=== PATIENT | male | born 1950 | race Two or more races ===

== ENCOUNTER 2016-10-24 16:10 | Inpatient (IN) | payer OTHER, MEDICARE ==
[~2016-10-24] VITALS: Ht 170.2 cm; Wt 82.1 kg
[2016-10-24] MEDS ORDERED: LORA1TAB PO (16:30)
[2016-10-24] MEDS ORDERED: VENL37.515 PO (16:30)
--- NOTE | 2016-10-24 16:51 | NUR ---
NOA MUJICA AT BEDSIDE FOR PSYCH EVAL
[2016-10-24] MEDS ORDERED: AMIT25TA24 PO (18:00)
[2016-10-24] MEDS ORDERED: ASPI81TA31 PO (18:00)
[2016-10-24] MEDS ORDERED: CARV25TA PO (18:00)
[2016-10-24] MEDS ORDERED: OLME40TA12 PO (18:00)
[2016-10-24] MEDS ORDERED: APIDRA (18:00)
[2016-10-24] MEDS ORDERED: LANTUS SQ (18:00)
[2016-10-24 18:07] LABS: CARBON DIOXIDE 33 mmol/L (21-32); CHLORIDE 98 mmol/L (98-107); POTASSIUM 4.1 mmol/L (3.5-5.1)
[2016-10-24 18:08] LABS: BASOPHILS # (AUTO) 0.1 K/uL (0.0-8.0); BASOPHILS % (AUTO) 0.7 % (0.0-2.0); CREATININE 1.1 mg/dL (0.6-1.3); EOSINOPHILS # (AUTO) 0.1 K/uL (0.0-0.7); EOSINOPHILS % (AUTO) 1.5 % (0.0-7.0); GLUCOSE 213 mg/dL (74-106); HEMATOCRIT 49.6 % (40-50); HEMOGLOBIN 16.8 G/DL (14.0-18.0); LYMPHOCYTES # (AUTO) 1.7 K/UL (0.8-4.8); LYMPHOCYTES % (AUTO) 20.8 % (20.5-51.5); MEAN CORPUSCULAR HEMOGLOBIN 29.7 UUG (27.0-31.0); MEAN CORPUSCULAR HGB CONC 34 g/dL (32.0-37.0); MEAN CORPUSCULAR VOLUME 87.9 FL (82.0-92.0); MONOCYTES # (AUTO) 0.5 K/UL (0.1-1.30); MONOCYTES % (AUTO) 6.5 % (0.0-11.0); NEUTROPHILS # (AUTO) 5.7 K/UL (1.8-8.9); NEUTROPHILS % (AUTO) 70.5 % (38.5-71.5); PLATELET COUNT (AUTO) 166 K/UL (150-450); RED BLOOD CELL COUNT(AUTO) 5.65 MIL/UL (4.7-6.1); UREA NITROGEN, BLOOD 35 mg/dL (7-18); WHITE BLOOD COUNT (AUTO) 8.1 K/UL (4.0-11.2)
[2016-10-24 18:12] LABS: *BILIRUBIN,URIN NEGATIVE (NEGATIVE); *BLOOD, URINE NEGATIVE (NEGATIVE); *COLOR,URINE DARK YELLOW (YELLOW); *KETONES,URINE TRACE (NEGATIVE); *PROTEIN,URINE 2+ (NEGATIVE); *UROBILINOGEN,URINE 0.2 E.U./dl (NORMAL); LEUKOCYTE ESTERASE ,URINE NEGATIVE (NEGATIVE); NITRITE, URINE NEGATIVE (NEGATIVE); PH,URINE 5.5 (5.0-8.0); UGLUCOSE TRACE (NEGATIVE)
[2016-10-24 18:13] LABS: ALANINE AMINOTRANSFERASE 67 U/L (16-63); ALKALINE PHOSPHATASE 80 U/L (50-136); ASPARTATE AMINOTRANSFERASE 23 U/L (15-37); BILIRUBIN,DIRECT 0.2 mg/dL (0.0-0.2); BILIRUBIN,TOTAL 0.7 mg/dL (0.2-1.0)
--- NOTE | 2016-10-24 18:14 | NUR ---
HOSPITAL SANDWICH PROVIDED PER PT REQUEST
[2016-10-24 18:17] LABS: ETHANOL < 3 MG/DL (0-0)
[2016-10-24 18:18] LABS: *CLARITY,URINE SLIGHTLY HAZY (CLEAR)
[2016-10-24 18:19] LABS: MUCUS,URINE MANY /LPF (0-FEW); URINE AMORPHOUS URATE FEW /HPF; WBC,URINE 0-3 /HPF (0-3)
[2016-10-24 18:21] LABS: *AMPHETAMINE, URINE NEGATIVE (NEGATIVE); *BARBITURATE, URINE NEGATIVE (NEGATIVE); *CANNABINOID, URINE NEGATIVE (NEGATIVE); *COCCAINE, URINE NEGATIVE (NEGATIVE); *OPIATE, URINE NEGATIVE (NEGATIVE); *PHENCYCLIDINE SCREEN,URINE NEGATIVE (NEGATIVE)
[2016-10-24 18:44] LABS: ACETAMINOPHEN < 2.0 ug/mL (10-30)
--- NOTE | 2016-10-24 19:59 | NUR ---
Pt. admitted to [facility], under care of Dr. Ulrich Belongs List completed
[2016-10-24 20:30] VITALS: BP 157/75
[2016-10-24] MEDS ORDERED: MAGNESIUM HYDROXIDE 30 ML LIQUID UDC PO PRN (20:30)
[2016-10-24] MEDS ORDERED: MAG HYDROX/AL HYDROX/SIMETH 30 ML LIQUID UDC PO PRN (20:30)
[2016-10-24] MEDS: LORAZEPAM 0.5 MG TABLET PO PRN (21:50)
[2016-10-24] MEDS ORDERED: INSULIN REGULAR, HUMAN 300 UNITS/3 ML VIAL SQ PRN (22:15)
[2016-10-24] MEDS ORDERED: DEXTROSE 50% 50 ML DISP.SYRIN IV PRN (22:15)
[2016-10-25] MEDS: TEMAZEPAM 7.5 MG CAPSULE PO PRN (00:18)
--- NOTE | 2016-10-25 00:25 | NUR ---
At approx 1999 admitted 66 years old male to [facility] mental health unit. Patient was BIB to [facility] ER due to patient's intense anxiety and depression, inability to work for one week. Inability to eat and sleep. Patient was placed on 72hrs hold starting on 10/24/16 at 1730 and will end on 10/27/16 at 1730, due to GD. Patient can't sleep, can't concentrate, can't work for last week, lack of energy, severe depression and anxiety and weight loss. Patient was calm and cooperative at time of admission. He was accompanied by his . He is patient of Dr. Osuna and Dr. Ulrich. All medication were reconcile with both doctors. patient was advised of unit rules, staff, unit, room and roommate. we will continue to monitor.
[2016-10-25] MEDS: BLOOD SUGAR DIAGNOSTIC 1 EACH STRIP VI SCH ×4 (07:01→20:23)
--- NOTE | 2016-10-25 07:12 | NUR ---
PATIENT SLEPT 5 HRS THROUGH THE NIGHT. HE HAD A SHOWER THIS MORNING. HE IS A/O X 4 WITH NO CHANGES IN LOC.
[2016-10-25 07:30] VITALS: BP 144/76
[2016-10-25] MEDS: CARVEDILOL 25 MG TABLET PO SCH ×2 (08:39→17:47)
[2016-10-25] MEDS: ASPIRIN 81 MG TAB.CHEW PO SCH (08:40)
[2016-10-25] MEDS: INSULIN REGULAR, HUMAN 300 UNIT/3 ML VIAL SQ PRN ×3 (08:44→17:45)
[2016-10-25] MEDS: VENLAFAXINE XR 75 MG CAP.SR.24H PO SCH (14:28)
[2016-10-25] MEDS: VALSARTAN 160 MG TABLET PO SCH (14:37)
--- NOTE | 2016-10-25 14:43 | NUR ---
Initial discharge instructions: Pt resides at home with his [[id number] [facility],[place],[address];[phone]].Per pt,he would like to return home upon discharge.Per ,she would like the pt to return home as well.SW will speak with pt,,and MD regarding appropriate discharge plans.SW will form a safe and proper discharge.
[2016-10-25] MEDS: LORAZEPAM 0.5 MG TABLET PO PRN (15:05)
[2016-10-25 16:00] VITALS: BP 123/68
[2016-10-25 19:57] VITALS: BP 113/56
[2016-10-25] MEDS ORDERED: MIRTAZAPINE 15 MG TABLET PO SCH (21:00)
[2016-10-25] MEDS ORDERED: INSULIN DETEMIR 300 UNIT/3 ML CARTRIDGE SQ SCH (21:00)
--- NOTE | 2016-10-25 21:14 | NUR ---
PATIENT RECEIVED IN ACTIVITIES ROOM WATCHING T.V. PATIENT APPEARS WITH FLAT AFFECT, EASILY AGITATED "I WAS REALLY ANXIOUS THIS AFTERNOON." IS REDIRECTABLE. PATIENT DENIES SI, PATIENT ENCOURAGED TO EXPRESS FEELINGS AND CONCERNS. PATIENT COMPLAINT WITH MEDICATION. ACCUCHECK THIS EVENING 248 MG/DL WITH HS COVERAGE AND LEVEMIR ORDERED, GIVEN DIRECTED. PATIENT DENIES PAIN AT THIS TIME, WILL CONTINUE TO MONITOR. NO AGGRESSIVE OR COMBATIVE BEHAVIOR NOTED, WILL CONTINUE TO MONITOR AND REDIRECT.
[2016-10-25] MEDS ORDERED: DEXTROSE 50% 50 ML DISP.SYRIN IV PRN (21:45)
[2016-10-25] MEDS ORDERED: ENOXAPARIN SODIUM 40 MG/0.4 ML DISP.SYRIN SQ SCH (21:45)
[2016-10-26] MEDS: PANTOPRAZOLE SODIUM 40 MG TABLET.DR PO SCH (06:31)
[2016-10-26] MEDS: BLOOD SUGAR DIAGNOSTIC 1 EACH STRIP VI SCH ×4 (06:31→20:21)
[2016-10-26] MEDS: LORAZEPAM 0.5 MG TABLET PO PRN (06:45)
[2016-10-26 07:30] VITALS: BP 112/78
[2016-10-26] MEDS ORDERED: ENOXAPARIN SODIUM 40 MG/0.4 ML DISP.SYRIN SQ SCH (07:30)
[2016-10-26 07:58] LABS: BASOPHILS % (AUTO) 0.2 % (0.0-2.0); EOSINOPHILS # (AUTO) 0.2 K/uL (0.0-0.7); EOSINOPHILS % (AUTO) 1.8 % (0.0-7.0); HEMATOCRIT 47.5 % (40-50); HEMOGLOBIN 16.1 G/DL (14.0-18.0); LYMPHOCYTES # (AUTO) 1.6 K/UL (0.8-4.8); LYMPHOCYTES % (AUTO) 18.4 % (20.5-51.5); MEAN CORPUSCULAR HEMOGLOBIN 29.8 UUG (27.0-31.0); MEAN CORPUSCULAR HGB CONC 34 g/dL (32.0-37.0); MEAN CORPUSCULAR VOLUME 87.9 FL (82.0-92.0); MONOCYTES # (AUTO) 0.5 K/UL (0.1-1.30); MONOCYTES % (AUTO) 5.8 % (0.0-11.0); NEUTROPHILS # (AUTO) 6.2 K/UL (1.8-8.9); NEUTROPHILS % (AUTO) 73.8 % (38.5-71.5); PLATELET COUNT (AUTO) 157 K/UL (150-450); WHITE BLOOD COUNT (AUTO) 8.6 K/UL (4.0-11.2)
[2016-10-26 08:50] LABS: CREATININE 0.9 mg/dL (0.6-1.3); MAGNESIUM 1.9 mg/dL (1.8-2.4); PHOSPHOROUS 3.5 mg/dL (2.5-4.9); POTASSIUM 3.7 mmol/L (3.5-5.1)
[2016-10-26] MEDS: VALSARTAN 160 MG TABLET PO SCH (08:53)
[2016-10-26] MEDS: ASPIRIN 81 MG TAB.CHEW PO SCH (08:53)
[2016-10-26] MEDS: VENLAFAXINE XR 75 MG CAP.SR.24H PO SCH (08:53)
[2016-10-26] MEDS: CARVEDILOL 25 MG TABLET PO SCH ×2 (08:54→18:00)
[2016-10-26] MEDS: INSULIN REGULAR, HUMAN 300 UNIT/3 ML VIAL SQ PRN ×4 (10:34→18:36)
[2016-10-26 16:00] VITALS: BP 151/69
--- NOTE | 2016-10-26 17:12 | NUR ---
GPS/RN- patient advised of 14Day hold
--- NOTE | 2016-10-26 18:38 | NUR ---
GPS/RN- PATIENT REFUSED COREG, UNABLE TO ADMINISTER INSULIN, REFUSED DINNER. PATIENT PARANOID, SUSPICIOUS, VERBALIZING TO STAFF "I DON'T TRUST YOU".
[2016-10-26] MEDS: MIRTAZAPINE 15 MG TABLET PO SCH (20:09)
[2016-10-26] MEDS: ENOXAPARIN SODIUM 40 MG/0.4 ML DISP.SYRIN SQ SCH (20:11)
[2016-10-26] MEDS: INSULIN REGULAR, HUMAN 300 UNITS/3 ML VIAL SQ PRN (20:41)
[2016-10-26] MEDS: INSULIN DETEMIR 300 UNIT/3 ML CARTRIDGE SQ SCH (20:44)
[2016-10-26] MEDS ORDERED: INSULIN GLARGINE,HUM 300 UNITS/3 ML CARTRIDGE SQ SCH (21:00)
[2016-10-26] MEDS ORDERED: QUETIAPINE FUMARATE 25 MG TABLET PO SCH (21:00)
--- NOTE | 2016-10-26 21:31 | NUR ---
PATIENT RECEIVED IN ACTIVITIES ROOM WATCHING T.V. PATIENT APPEARS WITH FLAT AFFECT, EASILY AGITATED. PATIENT ISOLATIVE IN ROOM WITH NO COMMUNICATION WITH PEERS OR STAFF. PATIENT PARANOID/SUSPICIOUS, IS PREOCCUPIED WITH OWN THOUGHTS. PATIENT DENIES SI, PATIENT ENCOURAGED TO EXPRESS FEELINGS AND CONCERNS. PATIENT COMPLAINT WITH MEDICATION. ACCUCHECK THIS EVENING 194 MG/DL WITH SLIDING SCALE HS COVERAGE AND LEVEMIR HS ORDERED, GIVEN DIRECTED. PATIENT DENIES PAIN AT THIS TIME, WILL CONTINUE TO MONITOR. NO AGGRESSIVE OR COMBATIVE BEHAVIOR NOTED, WILL CONTINUE TO MONITOR AND REDIRECT. Addendum: 10/26/16 at 2132 by GONZALEZ DAVIDSON RN PATIENT HAD SNACK THIS EVENING.
[2016-10-26 21:38] VITALS: BP 161/80
[2016-10-26] MEDS: TEMAZEPAM 7.5 MG CAPSULE PO PRN (22:09)
[2016-10-27] MEDS: PANTOPRAZOLE SODIUM 40 MG TABLET.DR PO SCH (06:22)
[2016-10-27] MEDS: BLOOD SUGAR DIAGNOSTIC 1 EACH STRIP VI SCH ×4 (06:31→20:08)
[2016-10-27 07:30] VITALS: BP_SYST 137; BP_SYST 154; BP_DIAS 74; BP_DIAS 82
[2016-10-27] MEDS: VENLAFAXINE XR 150 MG CAP.SR.24H PO SCH (08:43)
[2016-10-27] MEDS: CARVEDILOL 25 MG TABLET PO SCH ×2 (08:44→16:55)
[2016-10-27] MEDS: ASPIRIN 81 MG TAB.CHEW PO SCH (08:44)
[2016-10-27] MEDS: VALSARTAN 160 MG TABLET PO SCH (08:44)
[2016-10-27] MEDS ORDERED: VENLAFAXINE XR 75 MG CAP.SR.24H PO SCH (09:00)
[2016-10-27] MEDS: INSULIN REGULAR, HUMAN 300 UNIT/3 ML VIAL SQ PRN ×3 (12:18→20:29)
--- NOTE | 2016-10-27 12:35 | NUR ---
UR Note: Patient was authorized 6 days, with review due on 10/30/2016. CM assigned is Maria Isabel Price [ ext [phone]] with [facility] Tracking # [id number]
[2016-10-27] MEDS: QUETIAPINE FUMARATE 25 MG TABLET PO SCH ×2 (12:47→20:19)
[2016-10-27 17:00] VITALS: BP 152/84
[2016-10-27 20:13] VITALS: BP 132/70
[2016-10-27] MEDS: MIRTAZAPINE 15 MG TABLET PO SCH (20:18)
[2016-10-27] MEDS: ENOXAPARIN SODIUM 40 MG/0.4 ML DISP.SYRIN SQ SCH (20:26)
[2016-10-27] MEDS: INSULIN DETEMIR 300 UNIT/3 ML CARTRIDGE SQ SCH (20:27)
[2016-10-28] MEDS: PANTOPRAZOLE SODIUM 40 MG TABLET.DR PO SCH (07:00)
--- NOTE | 2016-10-28 07:00 | NUR ---
RECEIVED REPORT FROM ANIMAL REHABILITATOR NURSE, PT ASLEEP, RESP EVEN/UNLABORED, NO DISTRESS NOTED.
[2016-10-28] MEDS: BLOOD SUGAR DIAGNOSTIC 1 EACH STRIP VI SCH ×4 (07:01→21:04)
[2016-10-28 07:30] VITALS: BP 136/73
[2016-10-28] MEDS: CARVEDILOL 25 MG TABLET PO SCH ×2 (08:00→16:54)
[2016-10-28] MEDS: QUETIAPINE FUMARATE 25 MG TABLET PO SCH ×3 (09:00→21:00)
[2016-10-28] MEDS: VALSARTAN 160 MG TABLET PO SCH (09:00)
[2016-10-28] MEDS: VENLAFAXINE XR 150 MG CAP.SR.24H PO SCH (09:00)
[2016-10-28] MEDS: ASPIRIN 81 MG TAB.CHEW PO SCH (09:00)
--- NOTE | 2016-10-28 09:43 | NUR ---
PT REFUSED ALL AM MEDS 2 TIMES, SAYS IT DOESN'T DO ANY GOOD ANY GOOD, ENC PT THAT HE NEEDED IT BUT REFUSED STILL.
--- NOTE | 2016-10-28 11:39 | NUR ---
BS 163, PT REFUSED INSULIN, INFORMED PT HE NEEDED INSULIN AND IT IS A DOCTORS ORDER, BUT PT REFUSED
--- NOTE | 2016-10-28 13:14 | NUR ---
PT REFUSED SEROQUEL MED, INFORMED HIM HE NEEDED THIS MED BUT PT STILL REFUSED.
--- NOTE | 2016-10-28 14:06 | NUR ---
PT SITTING UP IN BED HOLDING HIS HEAD GRIMACING, OFFERED SEROQUEL AND TYLENOL BUT PT STILL REFUSED.
[2016-10-28 15:04] VITALS: BP 139/83
[2016-10-28] MEDS: LORAZEPAM 0.5 MG TABLET PO PRN (16:47)
[2016-10-28] MEDS: ACETAMINOPHEN 325 MG TABLET PO PRN ×2 (16:48→17:13)
--- NOTE | 2016-10-28 16:56 | NUR ---
GAVE PT 0.5MG OF ATIVAN AND 650MG OF TYLENOL FOR PAIN AND ANXIOUSNESS, PT ALSO TOOKCOREG 5MG, WILL CONT TO MONITOR.
[2016-10-28] MEDS: INSULIN REGULAR, HUMAN 300 UNIT/3 ML VIAL SQ PRN (17:09)
--- NOTE | 2016-10-28 17:54 | NUR ---
PT IS DOING MUCH BETTER, NO C/O PAIN, PT EATING DINNER, WILL GIVE REPORT TO HEAVY EQUIPMENT DIESEL MECHANIC NURSE.
[2016-10-28 20:02] VITALS: BP 116/72
[2016-10-28] MEDS: MIRTAZAPINE 15 MG TABLET PO SCH (21:00)
[2016-10-28] MEDS: INSULIN DETEMIR 300 UNIT/3 ML CARTRIDGE SQ SCH (21:01)
[2016-10-28] MEDS: INSULIN REGULAR, HUMAN 300 UNITS/3 ML VIAL SQ PRN (21:03)
[2016-10-28] MEDS: ENOXAPARIN SODIUM 40 MG/0.4 ML DISP.SYRIN SQ SCH (21:04)
[2016-10-29] MEDS: TEMAZEPAM 7.5 MG CAPSULE PO PRN ×2 (00:31→23:16)
[2016-10-29] MEDS: BLOOD SUGAR DIAGNOSTIC 1 EACH STRIP VI SCH ×4 (06:53→20:32)
[2016-10-29] MEDS: PANTOPRAZOLE SODIUM 40 MG TABLET.DR PO SCH (06:53)
[2016-10-29 07:30] VITALS: BP 153/75
[2016-10-29] MEDS: INSULIN REGULAR, HUMAN 300 UNIT/3 ML VIAL SQ PRN ×3 (08:24→17:04)
[2016-10-29] MEDS: ASPIRIN 81 MG TAB.CHEW PO SCH (09:05)
[2016-10-29] MEDS: VENLAFAXINE XR 150 MG CAP.SR.24H PO SCH (09:05)
[2016-10-29] MEDS: VALSARTAN 160 MG TABLET PO SCH (09:06)
[2016-10-29] MEDS: QUETIAPINE FUMARATE 25 MG TABLET PO SCH ×3 (09:06→20:24)
[2016-10-29] MEDS: CARVEDILOL 25 MG TABLET PO SCH ×2 (09:09→17:21)
[2016-10-29] MEDS ORDERED: VENLAFAXINE XR 75 MG CAP.SR.24H PO ONE (13:45)
[2016-10-29 15:14] VITALS: BP 124/66
[2016-10-29] MEDS: MIRTAZAPINE 15 MG TABLET PO SCH (20:24)
[2016-10-29] MEDS: ENOXAPARIN SODIUM 40 MG/0.4 ML DISP.SYRIN SQ SCH (20:25)
[2016-10-29] MEDS: INSULIN REGULAR, HUMAN 300 UNITS/3 ML VIAL SQ PRN (20:36)
[2016-10-29] MEDS: INSULIN DETEMIR 300 UNIT/3 ML CARTRIDGE SQ SCH (20:37)
[2016-10-29 20:51] VITALS: BP 123/67
--- NOTE | 2016-10-29 21:12 | NUR ---
PATIENT RECEIVED IN ROOM AWAKE SITTING UP IN BED. PATIENT APPEARS WITH FLAT AFFECT, EASILY AGITATED. PATIENT ISOLATIVE IN ROOM WITH NO COMMUNICATION WITH PEERS OR STAFF. PATIENT PARANOID/SUSPICIOUS, IS PREOCCUPIED WITH OWN THOUGHTS. PATIENT DENIES SI, PATIENT ENCOURAGED TO EXPRESS FEELINGS AND CONCERNS. PATIENT COMPLAINT WITH MEDICATION. ACCUCHECK THIS EVENING 238 MG/DL WITH SLIDING SCALE HS COVERAGE AND LEVEMIR HS ORDERED, GIVEN DIRECTED. PATIENT DENIES PAIN AT THIS TIME, WILL CONTINUE TO MONITOR. NO AGGRESSIVE OR COMBATIVE BEHAVIOR NOTED, WILL CONTINUE TO MONITOR AND REDIRECT.
[2016-10-30] MEDS: PANTOPRAZOLE SODIUM 40 MG TABLET.DR PO SCH (06:25)
[2016-10-30] MEDS: BLOOD SUGAR DIAGNOSTIC 1 EACH STRIP VI SCH ×4 (06:31→21:29)
[2016-10-30 07:30] VITALS: BP 141/76
[2016-10-30] MEDS ORDERED: VENLAFAXINE XR 150 MG CAP.SR.24H PO SCH (09:00)
[2016-10-30] MEDS: ASPIRIN 81 MG TAB.CHEW PO SCH (09:57)
[2016-10-30] MEDS: QUETIAPINE FUMARATE 25 MG TABLET PO SCH ×3 (09:58→21:24)
[2016-10-30] MEDS: VALSARTAN 160 MG TABLET PO SCH (09:59)
[2016-10-30] MEDS: CARVEDILOL 25 MG TABLET PO SCH ×2 (10:00→18:01)
[2016-10-30] MEDS: INSULIN REGULAR, HUMAN 300 UNIT/3 ML VIAL SQ PRN ×2 (12:39→17:16)
[2016-10-30 13:00] VITALS: BP 116/77
--- NOTE | 2016-10-30 15:23 | NUR ---
UR Note: AGUSTÍN called Maria Isabel OROZCO [ ext [phone]] with [facility] and left voicemail with clinicals. Awaiting authorization for further days. Tracking #[id number]
--- NOTE | 2016-10-30 16:25 | NUR ---
received patient awake sitting on side of bed with blank stare and no self disclousure to this feature writer kristen leung eating qs ,encouraged patient interact in day room with others he said ' ' i dont wANT TOO HURT ANY ONE"'' EXPLAINED HE S NOT HURTING ANY ONE ,.PT VERY sad and responding to internal stimuli continue to monitor for safety and s.i.
[2016-10-30 20:00] VITALS: BP 118/64
[2016-10-30] MEDS ORDERED: MIRTAZAPINE 15 MG TABLET PO SCH (21:00)
[2016-10-30] MEDS: ENOXAPARIN SODIUM 40 MG/0.4 ML DISP.SYRIN SQ SCH (21:27)
[2016-10-30] MEDS: INSULIN DETEMIR 300 UNIT/3 ML CARTRIDGE SQ SCH (21:31)
[2016-10-30] MEDS: INSULIN REGULAR, HUMAN 300 UNITS/3 ML VIAL SQ PRN (21:32)
--- NOTE | 2016-10-31 05:25 | NUR ---
PATIENT FIRST OBSERVED AWAKE SITTING UP IN ROOM. PATIENT DISPLAYS A FLAT AFFECT WITH LOW MOOD, EASILY AGITATED. PATIENT REMAINS ISOLATIVE IN ROOM WITH NO INTERACTION NOTED WITH STAFF OR PEERS. PATIENT DENIES SUICIDAL IDEATION OR INTENT. PATIENT ENCOURAGED TO VERBALIZE FEELINGS AND CONCERNS. PATIENT COMPLAINT WITH MEDICATION. ACCUCHECK 188 REGULAR INSULIN, AND LEVIMIR ADMINISTERED ACCORDING TO SLIDING SCALE. PATIENT DENIES PAIN AT THIS TIME, WILL CONTINUE TO MONITOR. NO AGGRESSIVE OR COMBATIVE BEHAVIOR NOTED, WILL CONTINUE WITH OBSERVATION Q 30 MINS. FOR SAFETY.
[2016-10-31] MEDS: PANTOPRAZOLE SODIUM 40 MG TABLET.DR PO SCH (06:29)
[2016-10-31 07:30] VITALS: BP 93/45
[2016-10-31] MEDS: CARVEDILOL 25 MG TABLET PO SCH ×2 (08:00→17:50)
[2016-10-31] MEDS: BLOOD SUGAR DIAGNOSTIC 1 EACH STRIP VI SCH ×4 (08:43→20:54)
[2016-10-31] MEDS: ASPIRIN 81 MG TAB.CHEW PO SCH ×2 (08:51→09:00)
[2016-10-31] MEDS: VALSARTAN 160 MG TABLET PO SCH ×2 (08:51→09:00)
[2016-10-31] MEDS: QUETIAPINE FUMARATE 25 MG TABLET PO SCH ×2 (08:54→09:00)
[2016-10-31] MEDS: INSULIN REGULAR, HUMAN 300 UNIT/3 ML VIAL SQ PRN (08:58)
[2016-10-31] MEDS ORDERED: VENLAFAXINE XR 75 MG CAP.SR.24H PO SCH (09:00)
--- NOTE | 2016-10-31 09:04 | NUR ---
PATIENT REFUSED TO EAT BREAKFAST, INSULIN COVERAGE NOT ADMINISTERED. ALSO, REFUSED ALL MORNING MEDICATIONS IN SPITE OF EDUCATING THE IMPORTANCE OF EACH MED. PATIENT OBSERVED TO BE ISOLATIVE AND DEPRESSED.
--- NOTE | 2016-10-31 12:31 | NUR ---
PATIENT IS UNCOOPERATIVE WITH THE CARE, TRIED TO CHECK HIS BLOODSUGAR AT 1130, PATIENT STRONGLY REFUSED. 1220 AGAIN, EXPLAINED TO PATIENT NEED HIS BLOOD SUGAR CHECK SINCE HE REFUSED TO EAT BREAKFAST, BS ACCUCHECK DONE 142 MG/DL. BROUGHT HIS LUNCH TRAY, BUT PATIENT REFUSED TO EAT. OFFERED MEDICATION SEROQUEL 25 MG PO DUE AT 1300 BUT PATIENT STRONGLY REFUSED, EDUCATED OUT THE MEDICATION BUT PATIENT REFUSED TO HEAR BY PUTTING HIS HANDS TO EACH EAR.
--- NOTE | 2016-10-31 15:45 | NUR ---
UR Note: Patient was authorized 2 more days authorized 10/30-10/31/16 with review due today 10/31/16. AGUSTÍN called Maria Isabel OROZCO [ ext [phone]] with [facility] and left voicemail requesting further authorization days. Tracking #[id number]
[2016-10-31] MEDS: risperiDONE-M 0.5 MG TAB.RAPDIS PO SCH (17:37)
[2016-10-31] MEDS: DIVALPROEX SPRINKLE 125 MG CAP.SPRINK PO SCH (20:51)
[2016-10-31] MEDS: INSULIN DETEMIR 300 UNIT/3 ML CARTRIDGE SQ SCH (20:55)
[2016-10-31] MEDS: INSULIN REGULAR, HUMAN 300 UNITS/3 ML VIAL SQ PRN (20:55)
[2016-11-01] MEDS: PANTOPRAZOLE SODIUM 40 MG TABLET.DR PO SCH (06:36)
[2016-11-01] MEDS: BLOOD SUGAR DIAGNOSTIC 1 EACH STRIP VI SCH ×4 (06:37→20:58)
--- NOTE | 2016-11-01 06:39 | NUR ---
NSG/GPS PATIENT FIRST OBSERVED AWAKE SITTING UP IN ROOM. PATIENT DISPLAYS A FLAT AFFECT WITH LOW MOOD, EASILY AGITATED. PATIENT REMAINS ISOLATIVE IN ROOM WITH NO INTERACTION NOTED WITH STAFF OR PEERS. PATIENT REFUSED HS MEDICATION AND A.M. LAB DRAW. CONTINUE TO MONITOR FOR SAFETY.
[2016-11-01 08:00] VITALS: BP 142/76
[2016-11-01] MEDS: ASPIRIN 81 MG TAB.CHEW PO SCH (08:08)
[2016-11-01] MEDS: DIVALPROEX SPRINKLE 125 MG CAP.SPRINK PO SCH ×2 (08:08→20:58)
[2016-11-01] MEDS: CARVEDILOL 25 MG TABLET PO SCH ×2 (08:10→17:39)
[2016-11-01] MEDS: risperiDONE-M 0.5 MG TAB.RAPDIS PO SCH ×2 (08:15→17:37)
[2016-11-01] MEDS: INSULIN REGULAR, HUMAN 300 UNIT/3 ML VIAL SQ PRN ×3 (08:18→17:48)
--- NOTE | 2016-11-01 10:47 | NUR ---
UR Note: AGUSTÍN called Maria Isabel OROZCO [ ext [phone]] with [facility] and left voicemail with current clinicals. AGUSTÍN requested further authorization days, awaiting call back. Tracking #[id number]
[2016-11-01 15:00] VITALS: BP 136/71
[2016-11-01 21:19] VITALS: BP 119/69
[2016-11-01] MEDS: INSULIN DETEMIR 300 UNIT/3 ML CARTRIDGE SQ SCH (21:36)
[2016-11-01] MEDS: INSULIN REGULAR, HUMAN 300 UNITS/3 ML VIAL SQ PRN (21:37)
[2016-11-02] MEDS: PANTOPRAZOLE SODIUM 40 MG TABLET.DR PO SCH (06:27)
[2016-11-02] MEDS: BLOOD SUGAR DIAGNOSTIC 1 EACH STRIP VI SCH ×4 (06:28→20:24)
[2016-11-02 07:30] VITALS: BP 132/70
[2016-11-02 08:15] LABS: BASOPHILS % (AUTO) 0.8 % (0.0-2.0); EOSINOPHILS # (AUTO) 0.1 K/uL (0.0-0.7); HEMATOCRIT 42.8 % (40-50); HEMOGLOBIN 14.4 G/DL (14.0-18.0); LYMPHOCYTES # (AUTO) 1.3 K/UL (0.8-4.8); LYMPHOCYTES % (AUTO) 28.1 % (20.5-51.5); MEAN CORPUSCULAR HEMOGLOBIN 29.5 UUG (27.0-31.0); MEAN CORPUSCULAR HGB CONC 34 g/dL (32.0-37.0); MEAN CORPUSCULAR VOLUME 87.6 FL (82.0-92.0); MONOCYTES # (AUTO) 0.4 K/UL (0.1-1.30); MONOCYTES % (AUTO) 7.8 % (0.0-11.0); NEUTROPHILS % (AUTO) 61.3 % (38.5-71.5); PLATELET COUNT (AUTO) 117 K/UL (150-450); RED BLOOD CELL COUNT(AUTO) 4.89 MIL/UL (4.7-6.1); WHITE BLOOD COUNT (AUTO) 4.8 K/UL (4.0-11.2)
[2016-11-02 08:26] LABS: CREATININE 0.9 mg/dL (0.6-1.3); POTASSIUM 3.6 mmol/L (3.5-5.1)
[2016-11-02 08:27] LABS: BILIRUBIN,TOTAL 0.5 mg/dL (0.2-1.0); MAGNESIUM 1.7 mg/dL (1.8-2.4); PHOSPHOROUS 3.9 mg/dL (2.5-4.9); TOTAL PROTEIN, SERUM 6.4 g/dL (6.4-8.2)
[2016-11-02 08:28] LABS: THYROID STIMULATING HORMONE 2.543 mIU/mL (0.358-3.740)
[2016-11-02] MEDS: DIVALPROEX SPRINKLE 125 MG CAP.SPRINK PO SCH ×2 (09:40→20:57)
[2016-11-02] MEDS: ASPIRIN 81 MG TAB.CHEW PO SCH (09:41)
[2016-11-02] MEDS: risperiDONE-M 0.5 MG TAB.RAPDIS PO SCH ×3 (09:41→17:21)
[2016-11-02] MEDS ORDERED: MAGNESIUM OXIDE 400 MG TABLET PO ONE (10:00)
[2016-11-02] MEDS: CARVEDILOL 25 MG TABLET PO SCH ×2 (10:41→17:21)
[2016-11-02] MEDS: INSULIN REGULAR, HUMAN 300 UNIT/3 ML VIAL SQ PRN ×2 (12:31→17:18)
--- NOTE | 2016-11-02 14:44 | NUR ---
UR Note: AGUSTÍN spoke with Maria Isabel OROZCO [ ext [phone]] at [facility] /[employer] who stated the patient has been authorized until tomorrow 11/03/16. Review due tomorrow 11/03/16. Tracking #[id number]
[2016-11-02 16:00] VITALS: BP 132/54
[2016-11-02 20:19] VITALS: BP 145/73
[2016-11-02] MEDS: INSULIN DETEMIR 300 UNIT/3 ML CARTRIDGE SQ SCH (21:00)
[2016-11-02] MEDS: INSULIN REGULAR, HUMAN 300 UNITS/3 ML VIAL SQ PRN (21:01)
[2016-11-03] MEDS: PANTOPRAZOLE SODIUM 40 MG TABLET.DR PO SCH (06:16)
[2016-11-03] MEDS: BLOOD SUGAR DIAGNOSTIC 1 EACH STRIP VI SCH ×4 (06:39→20:45)
--- NOTE | 2016-11-03 07:23 | NUR ---
Patient noted labile, and suspicious last night. slept 6.30hrs through the night. patient had a shower this morning and was compliant with his AM medication.
[2016-11-03 07:30] VITALS: BP 135/79
[2016-11-03] MEDS: DIVALPROEX SPRINKLE 125 MG CAP.SPRINK PO SCH ×2 (08:57→20:53)
[2016-11-03] MEDS: CARVEDILOL 25 MG TABLET PO SCH ×2 (08:58→17:28)
[2016-11-03] MEDS: risperiDONE-M 0.5 MG TAB.RAPDIS PO SCH ×3 (08:58→17:25)
[2016-11-03] MEDS: ASPIRIN 81 MG TAB.CHEW PO SCH (08:58)
[2016-11-03] MEDS: INSULIN REGULAR, HUMAN 300 UNIT/3 ML VIAL SQ PRN ×3 (09:01→17:26)
--- NOTE | 2016-11-03 15:46 | NUR ---
UR Note: Maria Isabel Quiroga CM [ ext [phone]] at [facility] left current clinicals on confidential voicemail. Awaiting authorization. Tracking #[id number]
[2016-11-03 20:21] VITALS: BP 115/69
[2016-11-03] MEDS: INSULIN REGULAR, HUMAN 300 UNITS/3 ML VIAL SQ PRN (20:52)
[2016-11-03] MEDS: INSULIN DETEMIR 300 UNIT/3 ML CARTRIDGE SQ SCH (20:53)
[2016-11-04] MEDS: PANTOPRAZOLE SODIUM 40 MG TABLET.DR PO SCH (06:55)
[2016-11-04] MEDS: BLOOD SUGAR DIAGNOSTIC 1 EACH STRIP VI SCH ×4 (07:00→20:18)
[2016-11-04 07:30] VITALS: BP 133/71
[2016-11-04] MEDS: risperiDONE-M 0.5 MG TAB.RAPDIS PO SCH ×3 (09:05→20:32)
[2016-11-04] MEDS: CARVEDILOL 25 MG TABLET PO SCH ×2 (09:05→17:02)
[2016-11-04] MEDS: ASPIRIN 81 MG TAB.CHEW PO SCH (09:05)
[2016-11-04] MEDS: DIVALPROEX SPRINKLE 125 MG CAP.SPRINK PO SCH ×2 (09:05→20:32)
[2016-11-04] MEDS: INSULIN REGULAR, HUMAN 300 UNIT/3 ML VIAL SQ PRN ×3 (09:07→18:09)
--- NOTE | 2016-11-04 14:01 | NUR ---
GPS.RN- notified Lily Rosado.Moises of fluctuating blood sugars, orders received to increase Levemir at HS from 10units to 13 units. orders received, read back
[2016-11-04 16:00] VITALS: BP 142/77
[2016-11-04 20:01] VITALS: BP 123/65
[2016-11-04] MEDS: INSULIN REGULAR, HUMAN 300 UNITS/3 ML VIAL SQ PRN (20:37)
[2016-11-04] MEDS ORDERED: INSULIN DETEMIR 300 UNIT/3 ML CARTRIDGE SQ SCH (21:00)
[2016-11-05] MEDS: PANTOPRAZOLE SODIUM 40 MG TABLET.DR PO SCH (06:05)
[2016-11-05] MEDS: BLOOD SUGAR DIAGNOSTIC 1 EACH STRIP VI SCH ×4 (06:31→20:36)
[2016-11-05 07:30] VITALS: BP 137/77
[2016-11-05] MEDS: DIVALPROEX SPRINKLE 125 MG CAP.SPRINK PO SCH ×3 (08:00→20:43)
[2016-11-05] MEDS ORDERED: risperiDONE-M 0.5 MG TAB.RAPDIS PO SCH (08:00)
[2016-11-05] MEDS: CARVEDILOL 25 MG TABLET PO SCH ×2 (08:01→17:16)
[2016-11-05] MEDS: risperiDONE-M 0.5 MG TAB.RAPDIS PO SCH ×3 (08:01→20:42)
[2016-11-05] MEDS: ASPIRIN 81 MG TAB.CHEW PO SCH (08:02)
[2016-11-05] MEDS: INSULIN REGULAR, HUMAN 300 UNIT/3 ML VIAL SQ PRN ×2 (12:19→17:17)
[2016-11-05 15:41] VITALS: BP 127/69
--- NOTE | 2016-11-05 17:58 | NUR ---
GPS/RN- Dr Knowles advised of patient blood sugar today, remains unstable. orders received to increase Levemir at HS from 13 units to 15 units, orders repeated back to
[2016-11-05 20:00] VITALS: BP 139/70
[2016-11-05] MEDS: INSULIN REGULAR, HUMAN 300 UNITS/3 ML VIAL SQ PRN (20:46)
[2016-11-05] MEDS ORDERED: INSULIN DETEMIR 300 UNIT/3 ML CARTRIDGE SQ SCH (21:00)
--- NOTE | 2016-11-06 05:12 | NUR ---
Patient BS was 278 on 11/05/16 at HS. 6 units humulin were given SC. plus Levemir 15 units. we will continue to monitor BS
[2016-11-06] MEDS: PANTOPRAZOLE SODIUM 40 MG TABLET.DR PO SCH (06:43)
[2016-11-06] MEDS: BLOOD SUGAR DIAGNOSTIC 1 EACH STRIP VI SCH ×2 (06:45→12:52)
[2016-11-06 07:30] VITALS: BP 135/72
[2016-11-06 08:24] VITALS: BP 135/72
[2016-11-06] MEDS: risperiDONE-M 0.5 MG TAB.RAPDIS PO SCH ×2 (08:24→12:53)
[2016-11-06] MEDS: CARVEDILOL 25 MG TABLET PO SCH (08:24)
[2016-11-06] MEDS: ASPIRIN 81 MG TAB.CHEW PO SCH (08:24)
[2016-11-06] MEDS: DIVALPROEX SPRINKLE 125 MG CAP.SPRINK PO SCH (08:25)
--- NOTE | 2016-11-06 11:55 | NUR ---
DC Note: The patient will be discharged today back home [[address] [place], [address]; [phone]] via private transportation. Patient will be picked up by his , Mitra [phone] at 1:00 pm. Patient is aware and agreeable with discharge plans. Pt will follow up with (Glue Spreading Machine Operator) [[address] [address]; ]. Patient was encouraged to present at [facility], [address] [place] [id number], [phone] at 9:00 am on 11/07/16 for intake screening. Patient was referred to [[address] [place] [address]; ] who is contracted with the patient's [employer] [[employer]].
[2016-11-06] MEDS: INSULIN REGULAR, HUMAN 300 UNIT/3 ML VIAL SQ PRN (12:55)
--- NOTE | 2016-11-06 13:49 | NUR ---
Seen by Dr. Ulrich,with discharge order to home. Prescription and DC instruction given to patient and , verbalized understanding. Went home per ambulatory per request accompanied by Shandra ESPINOZA and Mitra.
[2016-11-06] MEDS ORDERED: BENZTROPINE MESYLATE 0.5 MG TABLET PO SCH (17:00)
== END 2016-11-06 13:49 | disposition home or self-care (01) | DRG 885 ==
LOC: ER 16:10 → GPS 19:50
PROVIDERS: ADMIT Psychiatry & Neurology Psychosomatic Medicine; ATTEND Psychiatry & Neurology Psychosomatic Medicine
DX: F33.3 Major depressive disorder, recurrent, severe with psychotic symptoms (principal); E11.65 Type 2 diabetes mellitus with hyperglycemia; Z73.6 Limitation of activities due to disability; I10 Essential (primary) hypertension; E78.5 Hyperlipidemia, unspecified; Z79.4 Long term (current) use of insulin; Z51.5 Encounter for palliative care; Z91.19 Patient's noncompliance with other medical treatment and regimen; E83.42 Hypomagnesemia; D69.6 Thrombocytopenia, unspecified; F41.9 Anxiety disorder, unspecified; R82.5 Elevated urine levels of drugs, medicaments and biological substances
CPT/HCPCS: 36415; 80164; 80307; 83735; 84100; 84443; 85025; 97161; G0480; G0480-TC; J1650; J1815